=== PATIENT | female | born 1945 | race Caucasian/White ===

== ENCOUNTER 2022-04-21 08:51 | Day surgery (SDC) | payer MEDICARE, OTHER ==
[2022-04-17 10:56] VITALS: BMI 27.1
[~2022-04-21 08:51] MED LIST: LACTATED RINGERS 1,000 ML IV SCH; LIDOCAINE 1% (10MG/ML) FOR IV START INTRADERMA PRN
[2022-04-21 09:46] VITALS: TEMP 97.3
[2022-04-21] MEDS ORDERED: PROPOFOL 10 MG/ML 20 ML VIAL IV ONE (10:30)
--- NOTE | 2022-04-21 10:49 | P.PCN ---
Date of Procedure: 04/21/22 Procedure(s) Performed: BRIEF HISTORY: Patient is a 76-year-old pleasant white female scheduled for an elective colonoscopy as a part of evaluation of screening for colon cancer/positive cologuard. Her last colonoscopy was 10 years ago. PROCEDURE PERFORMED: Colonoscopy. PREOPERATIVE DIAGNOSIS: Screening for colon cancer and positive cologuard. IV sedation per Anesthesia. PROCEDURE: After informed consent was obtained, the patient, was brought into the endoscopy unit. IV sedation was administered by Anesthesia under continuous monitoring. Digital rectal examination was normal. Initially the Olympus CF-160 flexible video colonoscope was then inserted in the rectum, gradually advanced into the cecum without any difficulty. Careful examination was performed as the scope was gradually being withdrawn. Ileocecal valve and the appendiceal orifice were visualized and appeared normal. Prep was excellent. Mucosa of the cecum, ascending colon, transverse colon, descending colon, sigmoid colon, and rectum appeared normal. Scattered left-sided diverticulosis. Retroflexion was performed in the rectum and small internal hemorrhoids were seen. The patient tolerated the procedure well. IMPRESSION: Normal-appearing colon from rectum to cecum no evidence of colorectal neoplasia . Scattered left-sided diverticulosis Small internal hemorrhoids RECOMMENDATIONS: Findings of this examination were discussed with the patientas well as her family. She was advised to have a repeat screening colonoscopy be on a high-fiber diet and take fiber supplements a regular basis.].
[2022-04-21 11:08] VITALS: BP 135/84; PULSE 75; RESP 15
== END 2022-04-21 11:55 | disposition home or self-care (01) ==
LOC: ORWHC2ENDO 08:51
PROVIDERS: ATTEND Internal Medicine Gastroenterology
DX: Z12.11 Encounter for screening for malignant neoplasm of colon (principal); K64.8 Other hemorrhoids; K57.30 Diverticulosis of large intestine without perforation or abscess without bleeding; I25.10 Atherosclerotic heart disease of native coronary artery without angina pectoris; E07.9 Disorder of thyroid, unspecified; Z79.890 Hormone replacement therapy; Z79.899 Other long term (current) drug therapy; Z98.82 Breast implant status
CPT/HCPCS: J2704; G0121; 45378

== ENCOUNTER → 2023-05-20 | Outpatient (CLI) | payer MEDICARE, OTHER ==
[2023-05-20 16:18] LABS: INR 0.9 (<1.2); Partial Thromboplastin Time 24.2 sec (22.0-30.0); Prothrombin Time 10.1 sec (10.0-12.5)
[2023-05-20 18:38] LABS: Basophils # (A) 0.07 X 10*3/uL (0.00-0.10); Basophils % (A) 0.9 %; Eosinophils # (A) 0.13 X 10*3/uL (0.04-0.35); Eosinophils % (A) 1.7 %; HCT 38.7 % (37.2-46.3); HGB 12.3 g/dL (12.0-15.0); Lymphocytes % (A) 22.8 %; MCH 32.8 pg (27.0-32.0); MCHC 31.8 g/dL (32.0-37.0); MCV 103.2 FL (80.0-97.0); Mean Platelet Volume 11.7 FL (9.5-12.2); Monocytes # (A) 0.69 X 10*3/uL (0.20-1.00); Monocytes % (A) 9.3 %; NRBC Per 100 WBC 0 X 10*3/uL (0.00-0.01); Neutrophils # (A) 4.82 X 10*3/uL (1.80-7.70); Neutrophils % (A) 64.9 %; Platelet Count 306 X 10*3/uL (140-440); RBC 3.75 X 10*6/uL (4.10-5.20); RDW 13.6 % (11.5-14.5); WBC 7.44 X 10*3/uL (4.50-10.00)
[2023-05-20 18:41] LABS: ALT 21 U/L (8-44); AST 19 U/L (13-35); Albumin 4.4 g/dL (3.8-4.9); Albumin/Globulin Ratio 1.76 Ratio (1.60-3.17); Alkaline Phosphatase 81 U/L (41-126); BUN/Creat Ratio 27.62 Ratio (12.00-20.00); Blood Urea Nitrogen 22.1 mg/dL (9.0-27.0); Calcium 9.7 mg/dL (8.7-10.3); Carbon Dioxide 24.2 mmol/L (21.6-31.8); Chloride 103 mmol/L (96-109); Globulin 2.5 g/dL (1.6-3.3); Glucose 94 mg/dL (70-110); Potassium 4.6 mmol/L (3.5-5.5); Sodium 140 mmol/L (135-145); Total Bilirubin 0.3 mg/dL (0.3-1.2); Total Protein 6.9 g/dL (6.2-8.2)
== END | disposition home or self-care (01) ==
LOC: LABWHC1 13:50
PROVIDERS: ATTEND Orthopaedic Surgery
DX: Z01.818 Encounter for other preprocedural examination (principal); M16.11 Unilateral primary osteoarthritis, right hip; Z22.322 Carrier or suspected carrier of Methicillin resistant Staphylococcus aureus
CPT/HCPCS: 36415; 80053; 85025; 85610; 85730; 86850; 86900; 86901; 87070; 93005

== ENCOUNTER 2023-05-31 05:42 | Day surgery (SDC) | payer MEDICARE, OTHER ==
[~2023-05-31 05:42] MED LIST changes: -LACTATED RINGERS 1,000 ML IV SCH; -LIDOCAINE 1% (10MG/ML) FOR IV START INTRADERMA PRN; +ONDANSETRON 4 MG/2 ML VIAL ONE; +TRANEXAMIC 1,000 MG/100ML-NACL 1,000 MG in SALINE 1 100ML.BAG IVPB PRN
[2023-05-31] MEDS ORDERED: ONDANSETRON 4 MG/2 ML VIAL ONE (05:43)
[2023-05-31] MEDS: LACTATED RINGERS 1,000 ML IV SCH (05:54)
[2023-05-31] MEDS: ACETAMINOPHEN TAB 500 MG TAB PO PRN (06:15)
[2023-05-31] MEDS: MELOXICAM 7.5 MG TAB PO PRN (06:15)
[2023-05-31] MEDS: DEXAMETHASONE SOD PHOSPHATE 4 MG/ML 1 ML VIAL IV ONE (06:15)
[2023-05-31] MEDS: ONDANSETRON 4 MG/2 ML VIAL IVP ONE (06:15)
[2023-05-31] MEDS: GABAPENTIN 300 MG CAP PO PRN (06:15)
[2023-05-31] MEDS ORDERED: ROCURONIUM 10 MG/ML (5 ML VIAL) IV ONE (06:17)
[2023-05-31] MEDS ORDERED: SUCCINYLCHOLINE CHLORIDE 200 MG/10 ML VIAL IV ONE (06:17)
[2023-05-31] MEDS ORDERED: SODIUM CHLORIDE 0.9% (PF) 10 ML VIAL ONE (06:17)
[2023-05-31] MEDS ORDERED: TRANEXAMIC 1,000 MG/100ML-NACL PREMIX BAG ONE (06:17)
[2023-05-31] MEDS ORDERED: HYDROmorphone (PF) 1 MG/ML ONE (06:17)
[2023-05-31] MEDS ORDERED: GLYCOPYRROLATE 0.2 MG/ML 2 ML VIAL ONE (06:17)
[2023-05-31] MEDS ORDERED: NEOSTIGMINE 1 MG/ML 10 ML VIAL ONE (06:17)
[2023-05-31] MEDS ORDERED: ROPIVACAINE 5 MG/ML 30 ML VIAL ONE (06:17)
[2023-05-31] MEDS ORDERED: LIDOCAINE 1% INJ 10MG/ML (20 ML MDV) ONE (06:17)
[2023-05-31] MEDS ORDERED: fentaNYL (PF) 50 MCG/ML 2 ML AMP ONE (06:17)
[2023-05-31] MEDS: fentaNYL (PF) 50 MCG/ML 2 ML AMP IVP ONE (06:40)
[2023-05-31] MEDS: MIDAZOLAM 2 MG/2 ML VIAL IVP ONE (06:40)
[2023-05-31] MEDS: ceFAZolin 1,000 MG in SODIUM CHLORIDE 0.9% 1,000 ML IRRIGATION ONE (06:59)
[2023-05-31] MEDS: ROPIVACAINE 5 MG/ML 30 ML VIAL MISCELLANE ONE ×2 (07:17→08:07)
--- NOTE | 2023-05-31 08:09 | P.ANPRN ---
Procedure Note - Anesthesia - Nerve Block Performed Right Lee Single Time Out Performed: Yes Date of Procedure: 05/31/23 Procedure Start Time: 06:40 Procedure Stop Time: 06:51 Location of Patient: PreOp Indication: Acute Post-Operative Pain, Requested by Surgeon Sedation Type: Sedate with meaningful contact maintained Preparation: Sterile Prep Position: Supine Needle Types: Pajunk Needle Gauge: 21 Ultrasound used to visualize needle placement: Yes Ultrasound used to observe medication spread: Yes Injectate: 0.5% Ropivacaine (see comment for volume) (20 ml + 10 ml NS + 4 mg Dexamethasone) Blood Aspirated: No Pain Paresthesia on Injection Noted: No Resistance on Injection: Normal Image Stored and Saved: Yes Events: Uneventful and Well Tolerated
--- NOTE | 2023-05-31 08:14 | P.OP ---
Date of Procedure: 05/31/23 Preoperative Diagnosis: Severe Osteoarthritis right hip Postoperative Diagnosis: Severe osteoarthritis right hip Procedure(s) Performed: Right total hip arthroplasty with a direct anterior approach Implants: [employer] Polarstem standard size 4 with a collar [employer] R3, 3 hole hemispherical acetabular shell, 50 mm [employer] Reflection 6.5 mm cancellus screw, 20 mm 2 [employer] R3, XLPE 20 acetabular liner [employer]hew Oxinium femoral head 36 mm, +0 All components were press-fit. The articulation is Oxinium on polyethylene. Anesthesia: GETA Surgeon: Reilly Pedroza Electrical Fitter #1: Felicita Klein Estimated Blood Loss (ml): 400 Pathology: none sent Condition: stable Disposition: PACU Indications for Procedure: After failure of conservative treatment we discussed the surgical and nonsurg ical treatment options at length. Patient wishes to proceed with a total hip arthroplasty with a direct anterior approach. Complications specific to this procedure were discussed at length, including but not limited to infection, leg length discrepancy, dislocation, nerve injury, and fracture. Covid-19 was also discussed at length with the patient, and they are aware of the current policies and procedures. The patient was given the option of delaying surgery, but they elect to proceed knowing these risks. Patient is aware of all these complications and informed consent was obtained Operative Findings: The operative findings are consistent with severe osteoarthritis of the right hip Description of Procedure: The patient was seen and evaluated in the preoperative area and the consent was reviewed. The operative site was marked with a skin marker. The patient verified the procedure and operative site. A MAGDA block was placed by anesthesia in the preoperative area. The patient was then brought to the operating room and given preoperative antibiotics intravenously. 1 g of Tranexamic acid was also given intravenously. A general anesthetic was administered by the anesthesia department. The patient was then placed on the [place] table with the bony prominences well-padded. The hip area was then prepped with a ChloraPrep solution and draped in the usual sterile fashion. A universal timeout was then performed, which confirmed the patient's name, surgical site, ALLERGIES, and procedure being performed on the consent. Next the incision site was located at 1 cm distal and 4 cm lateral to the anterior superior iliac spine. The skin and subcutaneous tissues were sharply incised. Incision was carefully dissected down to the fascia overlying the tensor fascia gina muscle. This fascia was then incised in line with the muscle fibers. Care was taken to stay laterally in order to avoid injuring the lateral femoral cutaneous nerve. Next, using blunt finger dissection, the tensor fascia gina muscle was dissected off its investing fascia. The muscle was then carefully retracted laterally with a cobra retractor over the lateral neck of the femur. Next, the circumflex vessels were identified and cauterized using the Aquamantis device. The anterior hip capsule was then exposed. The capsule was then opened and an inverted T fashion. The retractors were then placed intracapsularly. The retractors were maintained intracapsular throughout the procedure. The proximal femur was then visualized. Fluoroscopic x-rays were then taken in order to evaluate the preoperative leg lengths. A small amount of traction was placed on the leg. The femoral neck was then osteotomized at the appropriate level above the lesser trochanter. A small wedge of bone was then removed from the remaining femoral head. Next, using a corkscrew the femoral head was removed from the acetabulum. On gross visual inspection, the femoral head had complete loss of articular cartilage and multiple periarticular osteophytes. The femoral head was then measured. Attention was then turned to the acetabulum. The acetabulum was exposed and any remaining labrum was excised. Sequential reaming of the acetabulum was performed using fluoroscopic guidance until there was a good bed of bleeding cancellus bone. When the appropriate size was reached, a trial was then placed. The position and fit of the trial was checked with fluoroscopy. The trial was then removed. Then, using fluoroscopic guidance, the final implant was impacted at 20 of anteversion and 40 of abduction, and fully seated in the acetabulum. 2 screws were then placed in the acetabulum. Again fluoroscopy was used to check position of the screws. Next, the liner was then impacted, with a 20 elevated liner located in the anterior superior quadrant. Component locking was confirmed. Attention was then directed to the femur. With the aid of the [place] table, the femur was externally rotated to approximately 130, extended, and adducted under the opposite leg. A side hook was then placed under the proximal femur, and the side hook elevator was used to elevate the proximal femur while releasing the capsule. Retractors were then placed. A capsular release was performed, as well as a release of the conjoined tendon, which afforded excellent vi sualization of the proximal femur. Next, a box osteotome was used to lateralize the proximal femur. A merchandise associate was then used to locate the femoral canal. Sequential broaching was then performed with appropriate size which afforded excellent fixation in the proximal femur. A trial was then placed with appropriate head and neck, and the hip was gently reduced with the aid of the [place] table. Fluoroscopy was then used to check position of the components, as well as to evaluate the leg lengths and offset. The leg lengths and offset were measured as closely as possible to ensure stability of the hip. The hip was then gently dislocated and the trials were then removed. Final implants were then impacted and the hip was again reduced. Final fluoroscopic x-rays confirmed that the components were in anatomic position. The leg lengths and offset were measured and were found to coincide with the trial measurements. The hip was also taken through range of motion, and found to be stable. The hip was then copiously irrigated with antibiotic solution with pulsatile lavage. The hip was then irrigated with Irrisept solution. The soft tissues were then injected with a ropivacaine solution. A second dose of 1 g of Tranexamic acid was also given intravenously. The fascia was then closed with 2-0 strata fix suture. The subcutaneous tissue was closed with 3-0 Vicryl. The subcuticular tissue was closed with 3-0 strata fix suture. The skin was then closed with Exofin skin glue. After the glue and dried, and Optifoam silver impregnated dressing was applied. The patient was th en transferred to the recovery room in stable condition. The actuarial assistant ABIGAIL Wong was required due to the complexity of surgery, and the need for skilled surgical garment fitter for positioning, draping, exposure, retraction, and closure of the wound.
--- NOTE | 2023-05-31 08:35 | FL ---
EXAMINATION TYPE: FL guided pain mgmt statistic, XR Hip Complete RT Intraoperative/procedural fluoros copic services were provided. Total fluoroscopy time is 33.8 seconds with a total of 3 submitted imag es to PACS. Please see the operative/procedural note for further details. DAP: 0.9467 Gycm2
[2023-05-31] MEDS ORDERED: MAGNESIUM HYDROXIDE 2,400 MG/30 ML CUP PO PRN (08:39)
[2023-05-31] MEDS ORDERED: NALOXONE 0.4 MG/ML 1 ML VIAL IV PRN (08:39)
[2023-05-31] MEDS ORDERED: HYDROmorphone 0.5 MG/0.5 ML SYRINGE IVP PRN ×3 (08:39)
[2023-05-31] MEDS ORDERED: ONDANSETRON 4 MG/2 ML VIAL IVP PRN (08:39)
[2023-05-31] MEDS: LACTATED RINGERS 1,000 ML IV ONE ×2 (08:40→11:24)
[2023-05-31] MEDS ORDERED: HYDROcodone/APAP 7.5-325MG 1 EACH TAB PO PRN (08:41)
[2023-05-31] MEDS: HYDROmorphone 0.5 MG/0.5 ML SYRINGE IVP PRN (09:06)
--- NOTE | 2023-05-31 10:48 | XR ---
EXAMINATION TYPE: XR Hip Limited RT DATE OF EXAM: 05/31/2023 10:32 AM CLINICAL INDICATION:Female, 77 years old with history of Status post hip surgery, assess surgical ali gnment; [facility] COMPARISON: None. TECHNIQUE: XR Hip Limited RT; hip was examined in the frontal projection. FINDINGS: Post arthroplasty changes, hardware is intact, alignment is appropriate. No evidence of fra cture. Postoperative changes of the soft tissues with subcutaneous gas. No evidence of any acute osse ous pathology or joint dislocation. IMPRESSION: Hip arthroplasty with hardware intact and in appropriate alignment. No acute fracture.
[2023-05-31] MEDS: HYDROcodone/APAP 7.5-325MG 1 EACH TAB PO PRN (17:23)
[2023-05-31] MEDS: SENNOSIDES-DOCUSATE SODIUM 1 EACH TAB PO SCH (21:06)
[2023-05-31] MEDS: ASPIRIN 325 MG TAB PO SCH (21:06)
[2023-05-31] MEDS: SODIUM CHLORIDE 0.9% 1,000 ML IV SCH (21:19)
[2023-06-01 03:25] VITALS: RESP 17
[2023-06-01] MEDS: LEVOTHYROXINE 75 MCG TAB PO SCH (06:34)
[2023-06-01 07:54] VITALS: BP 106/71; PULSE 79; TEMP 98.2
--- NOTE | 2023-06-01 10:56 | P.DS ---
Providers Expected date of discharge: 06/01/23 Attending physician: Reilly Pedroza Consults: 05/31/23 08:39 Consult Physician Routine Consulting Provider: Lisa Branch Consult Reason/Comments: medical management Do you want consulting provider notified?: Yes Primary care physician: Helen Coppola - Discharge Diagnosis(es) (1) Osteoarthritis of right hip Current Visit: Yes Status: Acute (2) S/P total right hip arthroplasty Current Visit: Yes Status: Acute Hospital Course: This is a 77-year-old female with known history of degenerative arthritis of the right hip. The patient presented for evaluation as an outpatient. After discussion and consideration patient elects to proceed with total hip arthroplasty. The patient is seen preoperatively by Dr. Pedroza and medically cleared for surgery by their primary care physician. Patient is admitted to [facility] on 05/31/2023 for total hip arthroplasty. The procedure is performed without complication or sequelae. The patient is doing well postoperatively. Labs and vital signs are stable on day of discharge. On day of discharge patient's hip incision is healing well. There is minimal erythema. There is no drainage noted at this time. There is minimal soft tissue swelling to the hip and thigh. Patient has full foot and ankle motion without difficulty or pain. Calf is soft and nontender to palpation. Neurovascular status to the right lower extremity is intact. Patient is discharged home in good condition. Please see [facility] rec for accurate list of home medications. Plan - Discharge Summary Discharge Rx Participant: Yes New Discharge Prescriptions: New Aspirin 325 mg PO BID #60 tab HYDROcodone/APAP 7.5-325MG [[place] 7.5-325] 1 - 2 tab PO Q6H PRN #32 tab PRN Reason: Pain Sennosides [Senokot] 2 tab PO DAILY PRN #60 tablet PRN Reason: Constipation No Action Acetaminophen Tab [Tylenol Tab] 1,000 mg PO Q6HR PRN PRN Reason: Pain Levothyroxine Sodium 150 mcg PO QAM Biotin 5 mg PO DAILY Bifidobacterium Infantis [Align] 4 mg PO DAILY Discharge Medication List Bifidobacterium Infantis [Align] 4 mg PO DAILY 04/17/22 [History] Biotin 5 mg PO DAILY 04/17/22 [History] Levothyroxine Sodium 150 mcg PO QAM 04/17/22 [History] Acetaminophen Tab [Tylenol Tab] 1,000 mg PO Q6HR PRN 05/25/23 [History] Aspirin 325 mg PO BID #60 tab 05/31/23 [Rx] HYDROcodone/APAP 7.5-325MG [[place] 7.5-325] 1 - 2 tab PO Q6H PRN #32 tab 05/31/23 [Rx] Sennosides [Senokot] 2 tab PO DAILY PRN #60 tablet 05/31/23 [Rx] Follow up Appointment(s)/Referral(s): [facility] [[facility]] - 1-2 Days ([facility] will call you to schedule your in home physical therapy visits. ) Reilly Pedroza DO [Doctor of Osteopathic Medicine] - 2 Weeks Activity/Diet/Wound Care/Special Instructions: Weightbearing as tolerated with walker. Leave dressing intact. Dressing may be removed by home care nurse or by patient in 7 days. Then change dressing twice daily until follow up. May shower with initial dressing intact and after removal. If dressing become saturated, please remove. Please take aspirin 325mg twice daily for 30 days to prevent blood clots. Recommend use of compression stockings daily until follow up to help prevent swelling and blood clots. May remove at night before sleeping. Please follow-up with [facility] in 2 weeks and call with any questions or concerns, . Discharge Disposition: HOME WITH HOME HEALTH SERVICES
[2023-06-01 12:51] LABS: Basophils # (A) 0.03 X 10*3/uL (0.00-0.10); Basophils % (A) 0.4 %; Eosinophils # (A) 0.02 X 10*3/uL (0.04-0.35); Eosinophils % (A) 0.2 %; HCT 31.7 % (37.2-46.3); HGB 10.1 g/dL (12.0-15.0); Lymphocytes # (A) 1.17 X 10*3/uL (0.90-5.00); Lymphocytes % (A) 14.1 %; MCHC 31.9 g/dL (32.0-37.0); MCV 103.6 FL (80.0-97.0); Mean Platelet Volume 11.8 FL (9.5-12.2); Monocytes % (A) 8.5 %; NRBC Per 100 WBC 0 X 10*3/uL (0.00-0.01); Neutrophils # (A) 6.34 X 10*3/uL (1.80-7.70); Neutrophils % (A) 76.7 %; Platelet Count 204 X 10*3/uL (140-440); RBC 3.06 X 10*6/uL (4.10-5.20); RDW 13.3 % (11.5-14.5); WBC 8.27 X 10*3/uL (4.50-10.00)
--- NOTE | 2023-06-07 20:11 | P.CONS ---
History of Present Illness - Reason for Consult Consult date: 06/01/23 Medical management - Chief Complaint Right total hip arthroplasty - History of Present Illness Patient is a 77-year-old female with a past medical history of hypothyroidism, history of right breast cancer close post right mastectomy, chronic bronchitis and by history of smoking was admitted to the hospital for elective right hip arthroplasty. Patient is status post right total hip arthroplasty with direct anterior approach. Currently pain is controlled with medications. Patient is able to participate in physical therapy. Postoperatively patient's blood pressure went down to 90 over 58 mmHg. Patient is also requiring oxygen at 3 L via nasal cannula currently titrated down to room air. Patient denies any dizziness or lightheadedness. No chest pain or shortness of breath. No nausea or vomiting. Tolerating oral diet. Postsurgical right hip showed hip arthroplasty with hardware intact and in appropriate alignment. No acute fracture. Laboratory data showed WBC 8.27, hemoglobin 10.1 and platelets 204 and MCV 103.6. Review of Systems Constitutional: Patient denies any fever or chills . No generalized weakness or weight loss. Abdomen: Patient denied nausea vomiting and diarrhea and abdominal pain. Cardiovascular: Patient denies any chest pain or short of breath no palpitations. Respiratory: patient denied any cough is from production. No shortness of breath Neurologic: Patient denied any numbness or tingling headache. Musculoskeletal: Patient denies any complaints of joint swelling or deformity. Skin: Negative Psychiatric: Negative Endocrine: No heat or cold intolerance. No recent weight gain. Genitourinary: No dysuria or hematuria. All other 14 point ROS negative except the above Past Medical History Past Medical History: Cancer, Thyroid Disorder Additional Past Medical History / Comment(s): Rt. breast cancer, hypothyroidism, chronic bronchitis History of Any Multi-Drug Resistant Organisms: None Reported Past Surgical History: Breast Surgery Additional Past Surgical History / Comment(s): right mastectomy Past Anesthesia/Blood Transfusion Reactions: No Reported Reaction Past Psychological History: No Psychological Hx Reported Smoking Status: Former smoker Past Alcohol Use History: Occasional Additional Past Alcohol Use History / Comment(s): smoked < 1ppd x 40 yrs Past Drug Use History: None Reported - Past Family History Father Family Medical History: Myocardial Infarction ([place]) Additional Family Medical History / Comment(s): age 46 Mother Family Medical History: Cancer Additional Family Medical History / Comment(s): not sure what type of cancer, age 70 Daughter(s) Family Medical History: Deep Vein Thrombosis (DVT), Pulmonary Embolus Additional Family Medical History / Comment(s): in 30's, not sure cause Medications and Allergies Home Medications Medication Instructions Recorded Confirmed Type Bifidobacterium Infantis [Align] 4 mg PO DAILY 04/17/22 05/31/23 History Biotin 5 mg PO DAILY 04/17/22 05/31/23 History Levothyroxine Sodium 150 mcg PO QAM 04/17/22 05/31/23 History Acetaminophen Tab [Tylenol] 1,000 mg PO Q6HR PRN 05/25/23 05/31/23 History Aspirin 325 mg PO BID #60 tab 05/31/23 Rx HYDROcodone/APAP 7.5-325MG [[place] 1 - 2 tab PO Q6H PRN #32 tab 05/31/23 Rx 7.5-325] Sennosides [Senokot] 2 tab PO DAILY PRN #60 tablet 05/31/23 Rx Allergies Allergy/AdvReac Type Severity Reaction Status Date / Time amoxicillin Allergy Rash/Hives Verified 05/31/23 05:57 ciprofloxacin [From Cipro] Allergy Rash/Hives Verified 05/31/23 05:57 Physical Exam Vitals: Vital Signs Temp Pulse Pulse Resp BP Pulse Ox 06/01/23 07:06 98.2 F 79 17 106/71 97 06/01/23 01:32 98.4 F 71 17 96/62 96 05/31/23 21:00 19 05/31/23 19:29 97.6 F 80 18 96/61 96 05/31/23 13:55 97.4 F L 69 13 119/78 99 05/31/23 12:30 62 16 115/58 99 05/31/23 12:00 61 16 113/65 99 05/31/23 11:30 89 16 127/66 99 Intake and Output 05/31/23 06/01/23 06/01/23 22:59 06:59 14:59 Intake Total 180 750 Balance 180 750 Intake: Intake, IV Titration 750 Amount Sodium Chloride 0.9% 1, 700 000 ml @ 70 mls/hr IV . [id number] [facility] Rx#:[id number] ceFAZolin 2 gm In Sodium 50 Chloride 0.9% 50 ml @ 100 mls/hr IVPB Q8H [facility] Rx#: [id number] Oral 180 Other: # Voids 1 3 1 PHYSICAL EXAMINATION: Patient is lying in the bed comfortably, no acute distress, awake alert and oriented.. HEENT: Normocephalic. Neck is supple. Pupils reactive. Nostrils clear. Oral cavity is moist. Neck reveals no JVD, carotid bruits, or thyromegaly. CHEST EXAMINATION: Trachea is central. Symmetrical expansion. Lung hernandez clear to auscultation and percussion. CARDIAC: Normal S1, S2 with no gallops. No murmurs ABDOMEN: Soft. Bowel sounds normal. No organomegaly. No abdominal bruits. Extremities: reveal no edema. No clubbing or cyanosis Neurologically awake, alert, oriented x3 with well-coordinated movements. No focal deficits noted Skin: No rash or skin lesions. Psychiatric: Coperative. Nonsuicidal Musculoskeletal: No joint swelling or deformity. Normal range of motion. Right hip surgical site intact. Results CBC & Chem 7: 06/01/23 06:14 Assessment and Plan Assessment: Status post right total hip arthroplasty. Postoperative day 1 Macrocytic anemia with hemoglobin 10.1 Hypotension likely due to anesthesia/postoperative. Improved now. Hypothyroidism History of right breast cancer status post right mastectomy History of smoking GI and DVT prophylaxis as per primary team Plan: Patient will be continued on IV hydration due to hypotension. Currently blood pressure is improving. Denies any complaints of dizziness or lightheadedness. Limit narcotic pain medication use. Encourage incentive spirometry and PT OT. Consults GI and ureterolysis. Patient to start back on home medications and follow-up closely. Thank you for your consult.
== END 2023-06-01 12:10 | disposition home health service (06) ==
LOC: OR 05:42 → EDSTATUS 07:00 → 4SSUR 12:51 → OR 06-01 12:10
PROVIDERS: ATTEND Orthopaedic Surgery
DX: M16.11 Unilateral primary osteoarthritis, right hip (principal); E03.9 Hypothyroidism, unspecified; Z79.890 Hormone replacement therapy; Z88.1 Allergy status to other antibiotic agents; Z87.891 Personal history of nicotine dependence
CPT/HCPCS: 27130; 97161; 97166; 64447; 85025; 73501; 73502; C1776; J2250; J0330; J1100; J2710; J0690 ×2; J2405; J2001; J3010; J1170 ×2; J2795